=== PATIENT | female | born 2000 | race Caucasian/White ===

== ENCOUNTER 2021-05-19 08:25 | Emergency (ER) | payer OTHER ==
[2021-05-19 09:18] LABS: BASOPHIL 0.3 % (0-2); EOSINOPHIL 0.5 % (0-5); HCT 38.3 % (37.0-47.0); HGB 12.9 g/dl (12.5-16.0); MCH 29.2 pg (25.0-31.0); MCHC 33.7 g/dL (32.0-36.0); MCV 86.7 fL (78.0-100.0); MONOCYTE 7.1 % (0-12); NEUTROPHIL 79.5 % (41-80); NRBC 0; PLT 335 K/uL (150-400); RBC 4.42 M/uL (4.20-5.40); RDW 12.6 % (11.5-14.0)
[2021-05-19 09:38] LABS: ALBUMIN 3.5 g/dL (3.4-5.0); BILIRUBIN - TOTAL 0.4 mg/dL (0.2-1.0); CREATININE 0.75 mg/dL (0.51-0.95); GLOBULIN (CALCULATION) 4.6 g/dL; POTASSIUM 4.1 mmol/L (3.5-5.1); TOTAL PROTEIN 8.1 g/dL (6.4-8.2)
[2021-05-19 09:53] LABS: BILIRUBIN 1+ mg/dL (NEGATIVE); BLOOD NEGATIVE Ery/uL (NEGATIVE); CLARITY CLEAR (CLEAR); COLOR YELLOW (YELLOW); GLUCOSE (U) NORMAL (NORMAL); LEUKOCYTES NEGATIVE Leu/uL (NEGATIVE); NITRITE NEGATIVE (NEGATIVE); PROTEIN TRACE (LOW) mg/dL (NEGATIVE); SPECIFIC GRAVITY >=1.030 (1.001-1.030); UROBILINOGEN 0.2 mg/dL (0.2-1.0); pH 6.5 (5.0-9.0)
[2021-05-19 09:56] LABS: AMPHETAMINES NEGATIVE (NEGATIVE); BARBITURATES NEGATIVE (NEGATIVE); ECSTASY (MDMA) NEGATIVE (NEGATIVE); MARIJUANA (THC) POSITIVE (NEGATIVE); METHADONE NEGATIVE (NEGATIVE); OPIATES NEGATIVE (NEGATIVE); OXYCODONE NEGATIVE (NEGATIVE)
[2021-05-19 09:59] LABS: BACTERIA 1+; MUCOUS LARGE
[2021-05-19 10:30] LABS: CORONAVIRUS 2019 SARS-COV-2 NEGATIVE (NEGATIVE); INFLUENZA A NAA NEGATIVE (NEGATIVE)
[2021-05-19] MEDS ORDERED: CIPRO500 MG PO ×2 (12:01→14:36)
[2021-05-19] MEDS ORDERED: METRONIDAZOLE500 MG PO ×2 (12:01→14:36)
[2021-05-19] MEDS ORDERED: NORCO 5-325 TA1 EACH PO (12:04)
[2021-05-19] MEDS ORDERED: NAPROXEN500 MG PO ×2 (12:04→14:36)
== END 2021-05-19 12:57 | disposition home or self-care (01) ==
LOC: FER 08:25
PROVIDERS: Internal Medicine
DX: N83.201 Unspecified ovarian cyst, right side (principal); N39.0 Urinary tract infection, site not specified; F17.210 Nicotine dependence, cigarettes, uncomplicated; Z20.822 Contact with and (suspected) exposure to COVID-19
CPT/HCPCS: 36415; 71045; 80053; 80305; 81001; 83690; 84145; 84484; 85025; 93005; J0696; J1885; J2270; J2405; J7030; U0002